=== PATIENT | female | born 1975 | race Caucasian/White ===

== ENCOUNTER 2018-08-05 21:30 | Emergency (ER) | payer BC ==
--- OUTSIDE RECORDS SUMMARY | 2018-08-05 21:46 | XMS REPORT | Continuity of Care Document ---
:1975 Author Organization [facility] Address [address], [place] [id number] Phone Care Team Providers Name Role Phone Hien Burrows NP Unavailable Unavailable Allergies, Adverse Reactions, Alerts Substance Reaction Status No Known Allergies Active Medications Medication Instructions Dosage Effective Status Comments Dates (start - stop) Xulane 150 mcg-35 mcg/24 apply 1 patch by 1.00 patch - Active hr transdermal patch transdermal route every week EContra EZ 1.5 mg tablet 1 tab po within - Active 72 hours unprotected IC KLOR-CON 10 (unknown Not Available - Active strength) OMEPRAZOLE (unknown Not Available - Active strength) METOPROLOL SUCCINATE Not Available - Active (unknown strength) HYDROCHLOROTHIAZIDE Not Available - Active (unknown strength) CYMBALTA (unknown Not Available - Active strength) Problems Condition Effective Dates (start - Clinical Status Comments stop) Encounter for test, result negative Enctr srvlnc transdermal patch hormonal contraceptive device 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 Encounter for oth screening for malignant neoplasm of breast Encounter for screening for malignant neoplasm of cervix Cervical high risk HPV DNA test positive Encntr screen for infections w sexl mode of transmiss Encounter for oth general cnsl and advice on contraception Encounter for prescription of emergency contraception Human immunodeficiency virus [HIV] - counseling Encounter for screening for human - immunodeficiency virus Encounter for oth general cnsl and - advice on contraception Human immunodeficiency virus [HIV] - counseling 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 Encntr screen for infections w sexl mode of transmiss Acute vaginitis Encounter for test, result negative Encounter for initial prescription of other contraceptives Encntr screen for infections w sexl mode of transmiss HIV, Screening HIV Counseling BV LABORATORY EXAM NOS Procedures Procedure Date No information Results Test Name Date and Time Measure Units Reference Range Abnormal Flag Status Comments No information Advance Directives Directive Yes / No Effective Date File Name No information Encounters Encounter Practice Location Reason(s) Diagnoses Date Provider Providers Description For Visit Copied on Encounter [facility] [place] -Octia. [address], [place], [place], [place], [address]. [address] tel:[phone] St, [place], [address] [place], [id number], [place] tel:[phone] [facility] Encounter for Micaela Arnold. [facility] [place] test, [address] Provider: [facility] result 9 , [place], [place], [address], [place], [address] [place], [address] srvlnc [place]. [address], [place], [place], [place], [place], [address]. 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 [address] Provider: [facility] (routine) w/o [address], [place], [place], [place], 620 findingsEncount [phone]. [address] er for oth tel:[phone] St, [place], [place], [place], [place] [address] [place], [address]. [place], malignant tel:[phone], neoplasm of 300870 [place] breastEncounter tel:[phone] for screening [phone] for malignant neoplasm of cervixCervical high risk HPV DNA test positiveEncntr screen for infections w sexl mode of transmissEncoun ter for oth general cnsl and advice on contraceptionEn counter for prescription of emergency contraceptionHu man immunodeficienc y virus [HIV] counselingEncou nter for screening for human immunodeficienc y virusEncounter for oth general cnsl and advice on contraception [facility] Human Sep-2 [facility]erring [facility] [place] immunodeficienc 7-201 [address]. [address] Provider: Sandra y virus [HIV] [address], [place] counselingEncnt [place], [facility], 620 r for lead fire protection engineer exam [address]. mmer, [address] (general) tel:[phone] [address], St, [place], (routine) w/o [address] [place], [place], [place] findings [address]. [id number], tel:[phone] [place] [phone] tel:[phone] [facility] Encntr screen Mar-0 [facility] [place] for infections 8-201 [address]. [address] w sexl mode of [address], [place] transmissAcute [place], [place], [facility], 620 vaginitis [address]. [address] tel:+[phone] St, [place], [address] [place], [id number], [place] tel:[phone] [facility] Encounter for Nov-0 [facility], 5[address] Ravi. [address] Provider: [facility] result negative [address], NURSE [place], [place], [facility]. [facility], [facility] [address]. [address] tel:+[phone] St, [place], [address] [place], [id number], [place] tel:[phone] [facility] Encounter for Jan- [facility] [place] initial 4-201 [address]. [address] prescription of [address], [place] other [place], [facility], 620 contraceptivesE [address]. [address] ncntr screen tel:[phone] St, [place], for infections [address] [place], w sexl mode of [id number], transmiss [place] tel:[phone] [facility] HIV, [facility]ios. [facility]- [address], [place], [place], [address]. [facility], 620 tel:[phone] [address], [place], [place], [id number], [place] tel:[phone] [facility] BV Andrea Rios. [facility] [place] 1-201 [address] , [place], [facility], [address]. [facility], [facility] tel:[phone] [address] [address] , [place], [place], [id number], [place] tel:[phone] [facility] [place] 8-201 Loyda. [address], [facility], [place], [facility], [facility] [address]. [address] tel:[phone] , [place], [address] [place], [id number], [place] tel:[phone] [facility] LABORATORY EXAM [facility] [place] NOS 5-201 Hien. [address], [place], [place], [facility], [facility] [address]. [address] tel:[phone] [facility], [address] [place], [id number], [place] tel:[phone] Family History Family Member Diagnosis Age At Onset Father No history of Myocardial infarction Father No history of Stroke 1st degree relative No hx of venous thromboembolism Mother Heart disease Mother Hypertension Family history of Hyperlipidemia Brother Cancer, testicular Mother Brain Aneurysm Mother Hyperlipidemia 1st degree relative No hx of cancer of breast, colon, endometrium or ovary Mother Myocardial infarction Mother Stroke Immunizations Vaccine Date Status Comments measles, mumps and rubella administered Note: PER PT HX FORM ; Source: virus vaccine Source Unspecified Payers Payer name Insurance type Covered democrat ID Authorization(s) Exchange [facility] [id number] Social History Type Description Quantity Date Captured Comments Alcohol Use Details Unknown Caffeine Use Details Unknown Tobacco Use Status Unknown Smoking Status Never smoker Sex Female Vital Signs Date / Height Weight BMI Pulse Blood Temperature Respiratory Body Head BMI Pulse Inhaled Time: Rate Pressure Rate Surface Circumference percentile Ox Ox Area No information Chief Complaint And Reason For Visit No information Reason For Referral Reason For Referral No information Plan Of Treatment Date Type Action Status No information History Of Present Illness Encounter Date Complaint History Of Present Illness No information Functional Status Date Functional Assessment No information Medications Administered Medication Instructions Dosage Effective Dates (start - stop) Status Comments No information Instructions Date Instruction Additional Information No information Assessments Type Assessment Date No information Goals Health Concern Goal Type Priority Status Date No information Medical Equipment Description Device [place] Device Identifier Effective Dates (start - stop ) Status No information Mental Status Date Cognitive Assessment No information Health Concerns Observation Date No information Concern Status Date No information
--- OUTSIDE RECORDS SUMMARY | 2018-08-05 21:46 | XMS REPORT | Continuity of Care Document ---
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 [address], [place], [place], [place], [address], [place]. [address] tel:[phone] , [place], [address] [place], [id number], [place] tel:[phone] [facility] Encounter for Micaela Arnold. [facility] [place] test, [address] Provider: [facility] result 9 , [place], [place], [address], [place], [place], 620 srvlnc [place]. [address], [place], [place], [place], [place], [address]. 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 [address] W Provider: [facility] (routine) w/o [address], [place], [place], [place], 620 findingsEncount [address]. [address] er for oth tel:[phone] St, [place], [place], [place], [place] [address] [place], [address]. [place], malignant tel:[phone], neoplasm of [id number] [place] breastEncounter tel:[phone] for screening [phone] for malignant neoplasm of cervixCervical high risk HPV DNA test positiveEncntr screen for infections w sexl mode of transmissEncoun ter for oth general cnsl and advice on contraceptionEn counter for prescription of emergency contraceptionHu man immunodeficienc y virus [HIV] counselingEncou nter for screening for human immunodeficienc y virusEncounter for oth general cnsl and advice on contraception [facility] Human Sep-2 [place] Referring [facility] [place] immunodeficienc 7-201 Mel. [address] W Provider: Sandra y virus [HIV] [address], [place] counselingEncnt [place], [place], [place] [facility], 620 r for metal off bearer exam [address]. mmer, [address] (general) tel:[phone] [address], St, [place], (routine) w/o [address] [place], [place], [place], [place] findings [address]. [id number], tel:[phone] [place] 740888 tel:[phone] [facility] Encntr screen Mar-0 [facility] [place] for infections 8-201 [address]. [address] w sexl mode of [address], [place] transmissAcute [place], [place], [facility], 620 vaginitis [address]. [address] tel:[phone] St, [place], [address] [place], [id number], [place] tel:[phone] [facility] Encounter for Nov-0 [facility], Ravi. 620 Provider: [facility] result negative [address], NURSE [place], [place], [facility]. [facility], [facility] [address]. [address] tel:+[phone] St, [place], [address] [place], [id number], [place] tel:[phone] [facility] Encounter for Jan- [facility] [place] initial 4-201 Mel. [address] prescription of [address], [place], [place], [facility], 620 contraceptivesE [address]. [address] ncntr screen tel:[phone] St, [place], for infections [address] [place], w sexl mode of [id number], transmiss [place] tel:[phone] [facility] HIV, Andrea Rios. [facility] 1- [address], [place], [place], [address]. [facility], 620 tel:[phone], [place], [place], [id number], [place] tel:[phone] [facility] BV Andrea Rios. [facility] [place] 1-201 [address] , [place], [facility], [address]. [facility], [facility] tel:[phone] [address] [address] , [place], [place], [id number], [place] tel:[phone] [facility] [place] 8-201 Loyda. [address], [facility], [place], [facility], [address] [address]. [address] tel:[phone] , [place], [address] [place], [id number], [place] tel:[phone] [facility] LABORATORY EXAM [facility] [place] NOS 5-201 Hien. [address], [facility], [place], [facility], [facility] [address]. [address] tel:+[phone] [facility], [address] [place], [id number], [place] tel:[phone] Family History Family Member Diagnosis Age At [...] Unspecified Payers Payer name Insurance type Covered alliance party ID Authorization(s) Exchange [facility] [id number] Social History Type Description Quantity Date Captured [...] Date No information Medical Equipment Description Device [place] Device Identifier Effective Dates (start - stop ) Status No information Mental Status Date Cognitive Assessment No information Health Concerns Observation Date No information Concern Status Date No information
[2018-08-05] MEDS ORDERED: Ketorolac INJ* 30 MG/ML 1 ML VIAL IV ONE (22:15)
[2018-08-05] MEDS ORDERED: NS 0.9% 1000 ML** 1,000 ML IV ONE (22:15)
[2018-08-05] MEDS ORDERED: Metoclopramide IV* 5 MG/ML 2 ML VIAL IV ONE (22:15)
[2018-08-05] MEDS ORDERED: diPHENhydraMINE IV* 50 MG/ML 1 ml VIAL (BENADRYL) IV ONE (22:15)
--- NOTE | 2018-08-05 22:21 | ED ---
Headache - HPI Summary HPI Summary: Patient complains of persistent migraine 2 days with associated nausea and vomiting 1, lightheadedness and chills. History of migraines, states this is like a normal migraine except for the vomiting. Headache is bilateral frontal, intermittent, 4/10 currently. First improved with Tylenol, now no longer improving with Tylenol. Patient states she had one episode of bilateral lower extremities shaking, and numbness and tingling in bilateral feet and hands. States episode lasted about 2 minutes and then resolved. Denies any other symptoms including unilateral weakness, trauma, vision change, photosensitivity , neck stiffness, fever, cough, sore throat, CP, SOB, D, abdominal pain, change in urine, change in BM. Medical history is HTN, HDL, migraines, atrial septal defect followed by cardiology.. - History Of Current Complaint Chief Complaint: EDHeadache Stated Complaint: "MIGRAINE, EXTREMITIES WENT NUMB, WEAK" PER MOM Time Seen by Provider: 08/05/18 22:06 Hx Obtained From: Patient Hx Last Menstrual Period: 2 weeks ago - Onset/Duration: Sudden Onset, Started days ago Initially Headache Was: Moderate Timing: Intermittent, Lasting:, Hours Character: Throbbing Location of Headache: Frontal Aggravating Factor: Nothing Allevating Factors: Nothing Associated Signs And Symptoms: Nausea, Vomiting - Allergies/Home Medications Allergies/Adverse Reactions: Allergies Allergy/AdvReac Type Severity Reaction Status Date / Time No Known Allergies Allergy Verified 01/02/15 06:58 PMH/Surg Hx/FS Hx/Imm Hx Endocrine/Hematology History: Reports: Hx Anemia - MANY YEARS AGO Cardiovascular History: Reports: Hx Hypertension, Other Cardiovascular Problems/ Disorders - HOLE IN SEPTUM GI History: Reports: Hx Gastroesophageal Reflux Disease History: Denies: Hx Dialysis Musculoskeletal History: Denies: Other Musculoskeletal History Sensory History: Reports: Hx Contacts or Glasses - CONTACTS AND GLASSES Denies: Hx Hearing Aid - ARNALDO Opthamlomology History: Reports: Hx Contacts or Glasses - CONTACTS AND GLASSES EENT History: Denies: Hx Deafness Neurological History: Denies: Hx Dementia, Other Neuro Impairments/Disorders Psychiatric History: Reports: Hx Anxiety - ON MEDS, Hx Depression - ON MEDS - Cancer History Hx Chemotherapy: No Hx Radiation Therapy: No - Surgical History Surgery Procedure, Year, and Place: EAR MYRINGOTOMY X3 A CHILD. SKIN GRAFT LEFT EAR, 1991 Hx Anesthesia Reactions: No - Immunization History Date of Tetanus Vaccine: utd Date of Influenza Vaccine: fall 2017 Infectious Disease History: No Infectious Disease History: Denies: Traveled Outside the [place] in Last 30 Days - Social History Alcohol Use: Rare Substance Use Type: Reports: None Smoking Status (MU): Never Smoked Tobacco Have You Smoked in the Last Year: No Review of Systems Constitutional: Negative Eyes: Negative ENT: Negative Cardiovascular: Negative Respiratory: Negative Positive: Vomiting, Nausea Genitourinary: Negative Musculoskeletal: Negative Skin: Negative Positive: Headache Psychological: Normal All Other Systems Reviewed And Are Negative: Yes Physical Exam Triage Information Reviewed: Yes Vital Signs On Initial Exam: Initial Vitals Temp Pulse Resp BP Pulse Ox 97.8 F 76 18 145/98 97 08/05/18 21:34 08/05/18 21:34 08/05/18 21:34 08/05/18 21:34 08/05/18 21:34 Vital Signs Reviewed: Yes Appearance: Positive: Well-Appearing Skin: Positive: Warm Head/Face: Positive: Normal Head/Face Inspection Eyes: Positive: Normal ENT: Positive: Normal ENT inspection Neck: Positive: Supple Respiratory/Lung Sounds: Positive: Clear to Auscultation Cardiovascular: Positive: Normal Abdomen Description: Positive: Nontender Musculoskeletal: Positive: Normal Neurological: Positive: Normal Psychiatric: Positive: Normal AVPU Assessment: Alert - Jez Coma Scale Best Eye Response: 4 - Spontaneous Best Motor Response: 6 - Obeys Commands Best Verbal Response: 5 - Oriented Coma Scale Total: 15 Diagnostics - Vital Signs Vital Signs Temp Pulse Resp BP Pulse Ox 08/05/18 21:34 97.8 F 76 18 145/98 97 - Laboratory Lab Statement: Any lab studies that have been ordered have been reviewed, and results considered in the medical decision making process. Headache Course/Dx - Course Course Of Treatment: Patient complains of persistent migraine 2 days with associated nausea and vomiting 1, lightheadedness and chills. History of migraines, states this is like a normal migraine except for the vomiting. Headache is bilateral frontal, intermittent, 4/10 currently. First improved with Tylenol, now no longer improving with Tylenol. Patient states she had one episode of bilateral lower extremities shaking, and numbness and tingling in bilateral feet and hands. States episode lasted about 2 minutes and then resolved. Denies any other symptoms including unilateral weakness, trauma, vision change, photosensitivity, neck stiffness, fever, cough, sore throat, CP, SOB, D, abdominal pain, change in urine, change in BM. Medical history is HTN, HDL, migraines, atrial septal defect followed by cardiology.. Physical exam unremarkable. Vital signs within normal limits. Headache improved from 10/09- with migraine cocktail. Tylenol 975 mg was given with no change. Oxycodone was given. Patient advised to follow-up with primary care for management of migraines. - Diagnoses Provider Diagnoses: Migraine Discharge - Sign-Out/Discharge Documenting (check all that apply): Patient Departure Patient Received Moderate/Deep Sedation with Procedure: No - Discharge Plan Condition: Stable Disposition: HOME Patient Education Materials: Migraine Headache (ED) Referrals: Eva Chaidez MD [Primary Care Provider] - Additional Instructions: Follow-up with primary care for management of migraines. Return to the ED for any new or worsening symptoms. - Billing Disposition and Condition Condition: STABLE Disposition: Home
[2018-08-05] MEDS ORDERED: Acetaminophen TAB* 325 MG PO ONE (23:43)
[2018-08-06] MEDS ORDERED: oxyCODONE TAB* 5 MG TAB PO ONE (01:06)
[2018-08-06 01:43] VITALS: BP 124/85
== END 2018-08-06 01:42 | disposition home or self-care (01) ==
LOC: ED 21:30
DX: G43.909 Migraine, unspecified, not intractable, without status migrainosus (principal); R11.2 Nausea with vomiting, unspecified; I10 Essential (primary) hypertension; Q21.1 Atrial septal defect; F41.9 Anxiety disorder, unspecified; F32.9 Major depressive disorder, single episode, unspecified
CPT/HCPCS: 96361; 96374; 96375; 99283; A9270-GY; J1200; J1885; J2765

== ENCOUNTER 2019-02-27 17:01 | Emergency (ER) | payer BC ==
[2019-02-27 18:19] VITALS: BP 142/97
--- NOTE | 2019-02-27 19:06 | UC ---
Skin Complaint HPI - HPI Summary HPI Summary: patient to urgent care with rash on right upper armshe thinks it may be from a flea bite---inaddition has developed a blister like rash under left nare on upper lip - History of Current Complaint Chief Complaint: UCRash Time Seen by Provider: 02/27/19 18:46 Stated Complaint: INSECT BITE RASH Hx Obtained From: Patient Hx Last Menstrual Period: 02/03/19 ?: No Onset/Duration: Sudden Onset, Lasting Days Timing: Constant Pain Intensity: 0 Location: Diffuse Character: Pain, Redness Aggravating Factor(s): Nothing Alleviating Factor(s): Nothing Associated Signs & Symptoms: Positive: Rash - 1. right arm--patch of non- vesicular papula , 2.under nose left lip vesicular rash with red base in a confluennt group Related History: Possible Reaction to: Insect - Allergy/Home Medications Allergies/Adverse Reactions: Allergies Allergy/AdvReac Type Severity Reaction Status Date / Time No Known Allergies Allergy Verified 02/27/19 18:19 Home Medications: Home Medications Atenolol TAB* [Tenormin TAB* 25 MG] 25 mg PO DAILY 02/27/19 [History Confirmed 02/27/19] DULoxetine DR CAP* [Cymbalta CAP*] 60 mg PO DAILY 02/27/19 [History Confirmed ] Potassium Chlor TAB* [Klor Con ER TAB 10 MEQ*] 10 meq PO DAILY 02/27/19 [ History Confirmed 02/27/19] amLODIPine TAB* [Norvasc 5 mg TAB*] 2.5 mg PO DAILY 02/27/19 [History Confirmed 02/27/19] PMH/Surg Hx/FS Hx/Imm Hx Previously Healthy: No Cardiovascular History: Hypertension Psychological History: Depression - Surgical History Surgical History: Yes Surgery Procedure, Year, and Place: EAR MYRINGOTOMY X3 A CHILD. SKIN GRAFT LEFT EAR, 1991 - Family History Known Family History: Positive: None - Social History Occupation: Employed Full-time Lives: With Family Alcohol Use: Rare Substance Use Type: None Smoking Status (MU): Never Smoked Tobacco Have You Smoked in the Last Year: No Review of Systems All Other Systems Reviewed And Are Negative: Yes Constitutional: Positive: Negative Skin: Positive: Rash Eyes: Positive: Negative ENT: Positive: Negative Respiratory: Positive: Negative Cardiovascular: Positive: Negative Gastrointestinal: Positive: Negative Genitourinary: Positive: Negative Motor: Positive: Negative Neurovascular: Positive: Negative Musculoskeletal: Positive: Negative Neurological: Positive: Negative Psychological: Positive: Negative Is Patient Immunocompromised?: No Physical Exam Triage Information Reviewed: Yes Appearance: Well-Appearing, No Pain Distress, Well-Nourished Vital Signs: Initial Vital Signs Temp 98.8 F 02/27/19 18:14 Pulse 76 02/27/19 18:14 Resp 16 02/27/19 18:14 BP 142/97 02/27/19 18:14 Pulse Ox 99 02/27/19 18:14 Vital Signs Reviewed: Yes Eye Exam: Normal Eyes: Positive: Conjunctiva Clear ENT Exam: Normal ENT: Positive: Normal ENT inspection, Hearing grossly normal, Pharynx normal, Nasal congestion, Nasal drainage, TMs normal, Uvula midline. Negative: Trismus , Muffled voice, Hoarse voice, Sinus tenderness Dental Exam: Normal Neck exam: Normal Neck: Positive: Supple, Nontender Respiratory Exam: Normal Respiratory: Positive: Chest non-tender, Lungs clear, Normal breath sounds, No respiratory distress, No accessory muscle use Cardiovascular Exam: Normal Cardiovascular: Positive: RRR, No Murmur, Pulses Normal, Brisk Capillary Refill Musculoskeletal Exam: Normal Musculoskeletal: Positive: Strength Intact, ROM Intact, No Edema Neurological Exam: Normal Neurological: Positive: Alert, Muscle Tone Normal Psychological Exam: Normal Skin Exam: Other Skin: Positive: Other - 1. right arm--patch of non-vesicular papula , 2.under nose left lip vesicular rash with red base in a confluennt group Course/Dx - Course Course Of Treatment: viral swab on left upper lip,, treat with valcyclovir, on right arm hydrocort cream, benadryl prn, cool compress - Diagnoses Provider Diagnosis: HSV-1 (herpes simplex virus 1) infection, Insect bite, Hypertension Discharge ED - Sign-Out/Discharge Documenting (check all that apply): Patient Departure All imaging exams completed and their final reports reviewed: No Studies - Discharge Plan Condition: Stable Disposition: HOME Prescriptions: ValACYclovir (*) [Valtrex 1 GM(*)] 2 gm PO BID #4 tab Patient Education Materials: Insect Bite or Sting (ED), Oral Herpes Simplex Virus Infections (ED), Hypertension (ED) Referrals: Eva Chaidez MD [Primary Care Provider] - 1 Week Additional Instructions: 1. ok to use cortisone cream on the bites on your arm 2. looks like you have a cold sore on you upper lip---I am treating that with valtrex 3. your blood pressure today is 142/97 --which is elevated---please get rechecked with your primary care provider - Billing Disposition and Condition Condition: STABLE Disposition: Home
[2019-03-01 17:54] LABS: Herpes Source UPPER LIP
[2019-03-01 23:28] LABS: Varicella Zoster Result Negative (Negative); Varicella Zoster Source UPPER LIP
--- NOTE | 2019-03-02 10:02 | UC ---
- Progress Note Progress Note: I CALLED THE PATIENT AND LEFT A MESSAGE TO CALL BACK. PLEASE ADVISE THAT UPPER LIP SWAB POSITIVE FOR HERPES SIMPLEX TYPE I. Course/Dx - Diagnoses Provider Diagnoses: HSV-1 (herpes simplex virus 1) infection, Insect bite, Hypertension Discharge ED - Sign-Out/Discharge Documenting (check all that apply): Post-Discharge Follow Up All imaging exams completed and their final reports reviewed: No Studies - Discharge Plan Condition: Stable Disposition: HOME Prescriptions: ValACYclovir (*) [Valtrex 1 GM(*)] 2 gm PO BID #4 tab Patient Education Materials: Insect Bite or Sting (ED), Oral Herpes Simplex Virus Infections (ED), Hypertension (ED) Referrals: Eva Chaidez MD [Primary Care Provider] - 1 Week Additional Instructions: 1. ok to use cortisone cream on the bites on your arm 2. looks like you have a cold sore on you upper lip---I am treating that with valtrex 3. your blood pressure today is 142/97 --which is elevated---please get rechecked with your primary care provider - Billing Disposition and Condition Condition: STABLE Disposition: Home
--- NOTE | 2019-03-02 10:15 | UC ---
- Progress Note Progress Note: PATIENT CALLED BACK. ADVISED THAT SWAB POSITIVE FOR HERPES SIMPLEX TYPE I. SHE STATES THAT THIS OUTBREAK IS A RECURRENCE SO SHE WAS TREATED APPROPRIATELY WITH VALTREX. ALL QUESTIONS ANSWERED TO THE BEST OF MY ABILITY. FOLLOW-UP NEEDED. Course/Dx - Diagnoses Provider Diagnoses: HSV-1 (herpes simplex virus 1) infection, Insect bite, Hypertension Discharge ED - Sign-Out/Discharge Documenting (check all that apply): Post-Discharge Follow Up All imaging exams completed and their final reports reviewed: No Studies - Discharge Plan Condition: Stable Disposition: HOME Prescriptions: ValACYclovir (*) [Valtrex 1 GM(*)] 2 gm PO BID #4 tab Patient Education Materials: Insect Bite or Sting (ED), Oral Herpes Simplex Virus Infections (ED), Hypertension (ED) Referrals: Eva Chaidez MD [Primary Care Provider] - 1 Week Additional Instructions: 1. ok to use cortisone cream on the bites on your arm 2. looks like you have a cold sore on you upper lip---I am treating that with valtrex 3. your blood pressure today is 142/97 --which is elevated---please get rechecked with your primary care provider - Billing Disposition and Condition Condition: STABLE Disposition: Home
== END 2019-02-27 19:34 | disposition home or self-care (01) ==
LOC: UCEAST 17:01
DX: B00.1 Herpesviral vesicular dermatitis (principal); S40.861A Insect bite (nonvenomous) of right upper arm, initial encounter; W57.XXXA Bitten or stung by nonvenomous insect and other nonvenomous arthropods, initial encounter; Y92.9 Unspecified place or not applicable; I10 Essential (primary) hypertension; F32.9 Major depressive disorder, single episode, unspecified
CPT/HCPCS: 87529; 87798; 99212; G0463